=== PATIENT | female | born 1930 | race Hispanic/Latino ===

== ENCOUNTER 2016-11-10 10:33 | Emergency (ER) | payer MEDICARE ==
[2016-11-10] MEDS ORDERED: LOPRESSOR PO ONE (11:03)
[2016-11-10] MEDS ORDERED: COZAAR PO ONE (11:03)
[2016-11-10] MEDS ORDERED: TORADOL IV ONE (11:09)
[2016-11-10 11:32] LABS: Basophils % (Auto) 0.4 % (0.0-1.8); Eosinophils % (Auto) 0.8 % (0.0-4.3); Hematocrit 39.6 % (30.3-42.9); Hemoglobin 13.3 gm/dl (10.1-14.3); Mean Corpuscular HGB Conc 34 % (30-34); Mean Corpuscular Hemoglobin 30 pg (28-32); Mean Corpuscular Volume 88 fl (79-97); Red Blood Count 4.51 M/mm3 (3.65-5.03); Red Cell Distribution Width 14.1 % (13.2-15.2); White Blood Count 8.1 K/mm3 (4.5-11.0)
--- NOTE | 2016-11-10 11:35 | Emergency Department Report ---
ED Abdominal Pain HPI - General Chief Complaint: Abdominal Pain Stated Complaint: GENERAL MALAISE Time Seen by Provider: 11/10/16 10:52 Source: patient, EMS Mode of arrival: Stretcher Limitations: No Limitations - History of Present Illness Initial Comments: 86-year-old female with a past medical history of hypertension, A. fib, previous appendectomy, inguinal hernia repair, and cholecystectomy presents to the hospital complains of abdominal pain.. Patient has had intermittent crampy abdominal pain on and off for 1-2 years. Pain is 7/10 intensity, worse with palpation. No alleviating factors. She suffers from chronic constipation. Last bowel movement 2 days ago it was "a little amount". She denies fever, nausea, vomiting, dysuria, decreased by mouth intake. Mild dizziness reported today. Patient has a mild cough productive yellow sputum and chronic shortness of breath is unchanged. Patient has not yet had her a.m. medications. Pt is no longer on coumadin. PMD: Dr. Nicholas Severity scale (0 -10): 8 - Related Data Home Medications Medication Instructions Recorded Confirmed Last Taken Aspirin [Aspirin BABY CHEW TAB] 1 tab PO DAILY 04/20/14 01/14/16 09/26/15 Dicyclomine [Bentyl] 20 mg PO TID 04/20/14 01/14/16 09/26/15 LORazepam [Ativan] 1 tab PO TID 04/20/14 01/14/16 09/26/15 Metoprolol [Lopressor TAB] 25 mg PO BID 04/20/14 01/14/16 09/26/15 Warfarin Sodium [Coumadin] 5 mg PO DAILY 04/20/14 01/14/16 Unknown AtorvaSTATin [Lipitor] 10 mg PO QHS 09/27/15 09/27/15 09/26/15 Losartan [Cozaar] 100 mg PO QDAY 09/27/15 01/14/16 09/26/15 Polyethylene Glycol 3350 [Miralax 17 gm PO QDAY 01/14/16 01/14/16 Unknown 3350] Previous Rx's Medication Instructions Recorded Last Taken Type Nitrofurantoin Adams/M-Cryst 100 mg PO Q12HR #14 capsule 11/10/16 Unknown Rx [Macrobid CAP] Ondansetron [Zofran Odt] 4 mg PO Q8HR PRN #20 tab.rapdis 11/10/16 Unknown Rx traMADol [Ultram 50 MG tab] 50 mg PO Q6HR PRN #20 tablet 11/10/16 Unknown Rx Allergies Allergy/AdvReac Type Severity Reaction Status Date / Time latex Allergy Itching Verified 11/10/16 10:50 morphine Allergy Nausea Verified 11/10/16 10:50 ED Review of Systems ROS: Stated complaint: GENERAL MALAISE Other details as noted in HPI Comment: All other systems reviewed and negative Other: Constitutional: No fevers chills Eyes: No eye pain visual changes ENT: No ear pain or throat pain Neck: Denies pain Respiratory: Denies cough wheezing shortness of breath Cardiovascular: Denies chest pain, palpitations, syncope GI: As per HPI : Denies dysuria, urinary frequency, or urgency Musculoskeletal: Denies back pain, joint swelling Skin: Denies rash, lesions, erythema Neurologic: Denies headache, numbness, weakness Psychiatric: Denies suicidal ideation, hallucinations ED Past Medical Hx - Past Medical History Previous Medical History?: Yes Hx Hypertension: Yes Hx Congestive Heart Failure: No Hx Diabetes: No Hx Asthma: No Hx COPD: No Additional medical history: AFIB, - Surgical History Past Surgical History?: Yes Hx Coronary Stent: Yes Hx Cholecystectomy: Yes Hx Appendectomy: Yes Hx Breast Surgery: Yes (left side mastectomy) Additional Surgical History: hernia repair, tonsillectomy UTI - Social History Smoking Status: Never Smoker Substance Use Type: None - Medications Home Medications: Home Medications Medication Instructions Recorded Confirmed Last Taken Type Aspirin [Aspirin BABY CHEW TAB] 1 tab PO DAILY 04/20/14 01/14/16 09/26/15 History Dicyclomine [Bentyl] 20 mg PO TID 04/20/14 01/14/16 09/26/15 History LORazepam [Ativan] 1 tab PO TID 04/20/14 01/14/16 09/26/15 History Metoprolol [Lopressor TAB] 25 mg PO BID 04/20/14 01/14/16 09/26/15 History Warfarin Sodium [Coumadin] 5 mg PO DAILY 04/20/14 01/14/16 Unknown History AtorvaSTATin [Lipitor] 10 mg PO QHS 09/27/15 09/27/15 09/26/15 History Losartan [Cozaar] 100 mg PO QDAY 09/27/15 01/14/1609/25/16 History Polyethylene Glycol 3350 [Miralax 17 gm PO QDAY 01/14/16 01/14/16 Unknown History 3350] Nitrofurantoin Adams/M-Cryst 100 mg PO Q12HR #14 capsule 11/10/16 Unknown Rx [Macrobid CAP] Ondansetron [Zofran Odt] 4 mg PO Q8HR PRN #20 tab.rapdis 11/10/16 Unknown Rx traMADol [Ultram 50 MG tab] 50 mg PO Q6HR PRN #20 tablet 11/10/16 Unknown Rx ED Physical Exam - General Limitations: No Limitations - Other Other exam information: General: No limitations, patient is alert in no acute distress Head exam: Atraumatic, normocephalic Eyes exam: Normal appearance, pupils equal reactive to light, extraocular movements intact ENT: Moist mucous membrane, normal oropharynx Neck exam: Normal inspection, full range of motion, no meningismus nontender Respiratory exam: Clear to auscultation bilateral, no wheezes, rales, crackles Cardiovascular: Normal rate and rhythm, normal heart sounds Abdomen: Soft, nondistended, right lower quadrant tenderness, no motor bowel sounds, no rebound or guarding Extremity: Full range of motion normal inspection no deformity Back: Normal Inspection, full range of motion, no tenderness Neurologic: Alert, oriented x3, cranial nerves intact, no motor or sensory deficit Psychiatric: normal affect, normal mood Skin: Warm, dry, intact ED Course Vital Signs 11/10/16 11/10/16 11/10/16 10:49 10:51 10:56 Temperature Pulse Rate 75 80 Respiratory 18 21 Rate Blood Pressure Blood Pressure 183/93 [Right] O2 Sat by Pulse 95 96 97 Oximetry 11/10/16 11/10/16 11/10/16 11:00 11:10 11:20 Temperature Pulse Rate 82 90 Respiratory 25 H 32 H Rate Blood Pressure 191/83 Blood Pressure [Right] O2 Sat by Pulse 96 96 Oximetry 11/10/16 11/10/16 11/10/16 11:30 11:39 11:40 Temperature Pulse Rate 90 Respiratory Rate Blood Pressure 191/83 191/83 191/83 Blood Pressure [Right] O2 Sat by Pulse 97 98 Oximetry 11/10/16 11/10/16 11/10/16 11:41 11:50 12:00 Temperature Pulse Rate 90 Respiratory Rate Blood Pressure 191/83 191/83 191/83 Blood Pressure [Right] O2 Sat by Pulse 97 98 Oximetry 11/10/16 11/10/16 11/10/16 15:24 15:30 15:40 Temperature Pulse Rate Respiratory Rate Blood Pressure 199/86 204/90 204/90 Blood Pressure [Right] O2 Sat by Pulse 96 94 Oximetry 11/10/16 11/10/16 11/10/16 15:50 16:02 16:28 Temperature 97.5 F L Pulse Rate 79 90 Respiratory 17 Rate Blood Pressure 193/97 203/90 Blood Pressure 182/86 [Right] O2 Sat by Pulse 96 97 Oximetry - Reevaluation(s) Reevaluation #1: 11/10/16 16:05 Diabetes states patient receives a dose of metoprolol and losartan for blood pressure. Toradol for pain. She required additional pain medication after trip and fall while in the ED. Pain improved after tramadol and nausea control with Zofran. Prolonged ED stay while awaiting urine production. Patient was able to produce urine after receiving IV fluids - Consultations Consultation #1: 11/10/16 16:38 Case was discussed with patient's primary care doctor Dr. Nicholas. He confirms that patient has chronic pain. He suspects that L1 compression fracture is also chronic but will reevaluate. ED Medical Decision Making - Lab Data Result diagrams: 11/10/16 10:58 11/10/16 10:58 Lab Results 11/10/16 11/10/16 11/10/16 Range/Units 10:58 10:58 15:14 WBC 8.1 (4.5-11.0) K/mm3 RBC 4.51 (3.65-5.03) M/mm3 Hgb 13.3 (10.1-14.3) gm/dl Hct 39.6 (30.3-42.9) % MCV 88 (79-97) fl MCH 30 (28-32) pg MCHC 34 (30-34) % RDW 14.1 (13.2-15.2) % Plt Count 358 (140-440) K/mm3 Lymph % (Auto) 23.1 (13.4-35.0) % Adams % (Auto) 8.2 H (0.0-7.3) % Eos % (Auto) 0.8 (0.0-4.3) % Baso % (Auto) 0.4 (0.0-1.8) % Lymph # 1.9 (1.2-5.4) K/mm3 Adams # 0.7 (0.0-0.8) K/mm3 Eos # 0.1 (0.0-0.4) K/mm3 Baso # 0.0 (0.0-0.1) K/mm3 Seg Neutrophils % 67.5 (40.0-70.0) % Seg Neutrophils # 5.4 (1.8-7.7) K/mm3 Sodium 138 (137-145) mmol/L Potassium 3.8 (3.6-5.0) mmol/L Chloride 98.9 (98-107) mmol/L Carbon Dioxide 24 (22-30) mmol/L Anion Gap 19 mmol/L BUN 27 H (7-17) mg/dL Creatinine 0.9 (0.7-1.2) mg/dL Estimated GFR 59 ml/min BUN/Creatinine Ratio 30.00 % Glucose 110 H (65-100) mg/dL Calcium 8.8 (8.4-10.2) mg/dL Total Bilirubin 0.60 (0.1-1.2) mg/dL AST 21 (5-40) units/L ALT 11 (7-56) units/L Alkaline Phosphatase 70 (35-129) units/L Troponin T < 0.010 (0.00-0.029) ng/mL Total Protein 7.3 (6.3-8.2) g/dL Albumin 3.8 L (3.9-5) g/dL Albumin/Globulin Ratio 1.1 % Lipase 55 (13-60) units/L Urine Color Yellow (Yellow) Urine Turbidity Cloudy (Clear) Urine pH 8.0 H (5.0-7.0) Urine Protein 100 mg/dl (Negative) mg/dL Urine Glucose (UA) Neg (Negative) mg/dL Urine Ketones Neg (Negative) mg/dL Urine Blood Mod (Negative) Urine Nitrite Neg (Negative) Urine Bilirubin Neg (Negative) Urine Urobilinogen < 2.0 (<2.0) mg/dL Ur Leukocyte Esterase Lg (Negative) Urine WBC (Auto) 18.0 H (0.0-6.0) /HPF Urine RBC (Auto) 40.0 (0.0-6.0) /HPF U Epithel Cells (Auto) 3.0 (0-13.0) /HPF Urine Mucus Few /HPF - EKG Data -: EKG Interpreted by Me (sinus rhythm rate [address]-T wave inversion) - Radiology Data Radiology results: report reviewed CT abdomen and pelvis IV contrast: Interval development of approximately 50% L1 compression fracture compared to 10/13/2014. Patient has other advanced multilevel spinal generative changes. Old healed left inferior pubic ramus fracture new since previous CT on record. Diffuse urinary bladder wall thickening noted again compared to previous. Chronic cystitis / hypertrophy may be correlated clinically an appropriate setting. Incidental findings including mild cardiomegaly, CHRONIC vascular calcifications , left renal cyst, cholecystitis, hysterectomy, left hip Jose, and other see report Chest x-ray: No acute process Pelvis x-ray: Osteopenia, left inferior pubic ramus deformity consistent with fracture age indeterminate - Medical Decision Making During ED stay patient has several bowel movements. Upon walking from the commode she tripped over her gown and struck the right flank the bed railing. Patient complains of pain to the right flank and superior right pelvis area. Pelvis x-ray did not reveal any acute abnormality and the old left pubic ramus fracture was once again identified.. Initial bruising resolved prior to discharge. Pain improved after tramadol. Macrobid provided for UTI. Patient provided clonidine 0.1 mg for persistent hypertension in the ED. We'll be instructed to continue her other medications as prescribed - Differential Diagnosis bronchitis, pneumonia, constipation, UTI, diverticulitis, chronic pain Critical Care Time: No Critical care attestation.: If time is entered above; I have spent that time in minutes in the direct care of this critically ill patient, excluding procedure time. ED Disposition Clinical Impression: UTI (urinary tract infection), Contusion, flank, Hypertension, Compression fracture of L1 lumbar vertebra, Dehydration Disposition: -01 TO HOME OR SELFCARE Is pt being admited?: No Does the pt Need Aspirin: No Condition: Poor Instructions: Urinary Tract Infection in Women (ED), Hypertension (ED), Flank Pain (ED), Vertebral Compression Fracture (ED) Additional Instructions: The CAT scan shows a compression fracture of L1 vertebrae approximately 50% that is new compared to September 2014 CAT scan. Please follow-up with the orthopedic doctor provided with orthopedic doctor of your choice. Follow-up with your physician. Take the medications as prescribed. Return if symptoms worsen. Prescriptions: Nitrofurantoin Adams/M-Cryst [Macrobid CAP] 100 mg PO Q12HR #14 capsule Ondansetron [Zofran Odt] 4 mg PO Q8HR PRN #20 tab.rapdis PRN Reason: Nausea And Vomiting traMADol [Ultram 50 MG tab] 50 mg PO Q6HR PRN #20 tablet PRN Reason: Pain Referrals: PRIMARY CARE, [Primary Care Provider] - 3-5 Days GUILLERMO FRAIRE MD [Staff Physician] - 3-5 Days (orthopedic doctor ) Time of Disposition: 16:39
[2016-11-10 11:45] LABS: Alanine Aminotransferase 11 units/L (7-56); Albumin 3.8 g/dL (3.9-5); Albumin/Globulin Ratio 1.1 %; Alkaline Phosphatase 70 units/L (35-129); Anion Gap 19 mmol/L; Blood Urea Nitrogen 27 mg/dL (7-17); Calcium 8.8 mg/dL (8.4-10.2); Carbon Dioxide 24 mmol/L (22-30); Chloride 98.9 mmol/L (98-107); Glucose 110 mg/dL (65-100); Lipase 55 units/L (13-60); Potassium 3.8 mmol/L (3.6-5.0); Sodium 138 mmol/L (137-145); Total Protein 7.3 g/dL (6.3-8.2)
[2016-11-10 11:46] LABS: Platelet Count 358 K/mm3 (140-440)
[2016-11-10] MEDS ORDERED: NACL ONE (12:24)
--- NOTE | 2016-11-10 12:30 | XRay Report ---
AP CHEST: HISTORY: Cough AP view of the chest demonstrates a normal mediastinal and cardiac contour with clear lungs and normal bony and soft tissue structures. IMPRESSION: No acute cardiopulmonary process.
[2016-11-10] MEDS ORDERED: NACL 0.9% 500 ML 500 ML IV ONE (12:35)
--- NOTE | 2016-11-10 13:17 | Cat Scan Report ---
CT ABDOMEN AND PELVIS WITH CONTRAST INDICATION: Right lower quadrant pain, constipation. History of appendectomy, cholecystectomy. COMPARISON: 10/13/2014. FINDINGS: Abdomen and pelvis CT performed following intravenous administration of 100 cc of Omnipaque 300. LUNG BASES: Right hemidiaphragm slightly elevated. Mild bibasilar scarring. Stable mild cardiomegaly. Few atherosclerotic calcifications. Stable 5 mm right distal paraesophageal calcification, axial image 49 near the GE junction. Mild nonspecific distal esophageal wall prominence/thickening, not excluded for gastroesophageal reflux and/or hiatal hernia, amongst others. ABDOMEN: Stable 4.3 x 3 cm left upper renal cyst. Liver, spleen, pancreas, adrenals, IVC and remainder kidneys within normal limits. Gallbladder again surgically absent. No ascites or size significant adenopathy. Atherosclerotic aortoiliac changes. Nonopacified GI tract evaluation limited, though grossly nonobstructive. Mild colonic stool. PELVIS: Diffuse urinary bladder wall thickening and mild mucosal enhancement again noted with now slightly poorer distention. Few pelvic phleboliths. Uterus again surgically absent. Usual rectosigmoid stool. No free fluid or significant adenopathy. Advanced multilevel lumbar and included lower thoracic spine degenerative changes with spurring and severe disc degeneration with vacuum phenomenon at multiple levels again noted. More notably, approximately 50% compression fracture involving superior half of L1 vertebral body has developed with slight retropulsion posterosuperiorly as on sagittal image 99. Osteopenia/osteoporosis. Lumbar facet arthropathy at few levels as well. At least 3 left femoral nails again create streak artifact. Interval development of old healed left inferior pubic ramus fracture, axial image 302, series 2. CONCLUSION: 1. Interval development of approximately 50% L1 compression fracture since September 2014 in this patient with various other advanced multilevel spinal degenerative changes, as detailed above. An old healed left inferior pubic ramus fracture is also new in the interval. 2. Diffuse urinary bladder wall thickening again noted. Chronic cystitis/hypertrophy may be correlated for clinically in an appropriate setting. 3. Various other incidental findings, including mild cardiomegaly, atherosclerotic vascular calcifications, left renal cyst, cholecystectomy, hysterectomy and left hip hardware, amongst others, as described. Thank you for the opportunity to participate in this patient's care.
[2016-11-10] MEDS ORDERED: NACL 0.9% 1000 ML 1,000 ML IV ONE (14:05)
[2016-11-10] MEDS ORDERED: ULTRAM PO ONE (14:09)
[2016-11-10] MEDS ORDERED: ZOFRAN IV ONE (14:10)
--- NOTE | 2016-11-10 14:59 | XRay Report ---
AP PELVIS History: Left pelvic pain. Findings: Osteopenia is noted. There is been previous internal fixation of the left femoral neck with 3 metallic screws. There is residual IV contrast agent in the renal collecting systems and bladder. Subtle deformity of the left inferior pubic ramus is identified consistent with a healing fracture. No additional fractures appreciated. There are degenerative changes in the lower lumbar spine and SI joints. Impression: Osteopenia. Left inferior pubic ramus deformity consistent with fracture, age indeterminate.
[2016-11-10 15:39] LABS: Bilirubin,Urine NEG (Negative); Blood,Urine MOD (Negative); Ketones,Urine NEG (Negative); Leukocyte Esterase,Urine LG (Negative); Mucus,Urine FEW /HPF; Nitrite,Urine NEG (Negative); Urobilinogen,Urine < 2.0 mg/dL (<2.0)
[2016-11-10] MEDS ORDERED: MACROBID PO ONE (15:47)
--- NOTE | 2016-11-10 16:02 | Admit Criteria Form ---
Admission Criteria Documentation: ABDOMINAL PAIN Clinical Indications for Admission to Inpatient Care (Place 'X' for any and all applicable criteria): Admission is indicated for ANY ONE of the following(1)(2)(3)(4)(5): [X ]I. Inpatient admission required rather than observation care (Also use Abdominal Pain: Observation Care, as appropriate) because of ANY ONE of the following: [ ]a) Severe pain requiring acute inpatient management [X ]b) Identification of etiology/finding that requires inpatient care (eg, aortic dissection, free air) [ ]c) Absent bowel sounds with complete ileus(6) [ ]d) Suspected toxic megacolon [ ]e) Severe electrolyte abnormalities requiring inpatient care [ ]f) High fever or infection requiring inpatient admission as indicated by ANY ONE of following(7)(8): [ ] i) Appropriate outpatient or observational care antimicrobial treatment unavailable, not effective, or not feasible [ ] ii) Documented bacteremia [ ] iii) Temperature > 104.9 degrees F (oral) [ ] iv) T >103.1 F (oral) or < 96.8 F(rectal) that does not respond to all emergency treatment measures [ ]g) Signs of intestinal obstruction [B] [ ]h) Hemodynamic instability [ ]i) IV fluid to replace significant ongoing losses (greater than 3 L/m2 per day) (12)(13) [ ]j) Percutaneous or open drainage (eg, abscess, biliary tract ) procedures [ ]k) Parenteral nutrition regimen that must be implemented on inpatient basis [ ]l) Other condition,treatment or monitoring requiring inpatient admission. [ ]II. Peritoneal signs present [ ]III. Surgery needed that cannot be performed on an ambulatory basis. [ ]IV. Evaluation requires patient to not eat or drink for extended period ( eg, more than 24 hours). [ ]V. Contraindications and/or Inappropriate clinical situations for Observational Care in patients with abdominal pain, when ANY ONE of the following is required: [ ]a) Thorough evaluation is required to prevent catastrophic events due to delays in diagnosing (e.g.Mesenteric ischemia) 1,3 [ ]b) Patient with severe pathology or with chronic symptoms unlikely to improve in the ED stay (3) [ ]. General contraindications and/or Inappropriate clinical situations for Observational Care in patients with abdominal pain, when ANY ONE of the following is required: [ ]a) Prediction of prolongation of LOS based on ANY ONE of the following may be considered as a contraindication for observational care 2, 3, 4, 5, 6, 7, 8, 9, 10, 11 [ ]i) Age > 65 yrs. [ ]ii) Patient arriving by ambulance [ ]iii) Patient with high acuity [ ]iv) Patient requiring vital sign monitoring [ ]v) Patient on IV medication [ ]b) Systolic blood pressures 180mmHg 3,12 [ ]c) Patient with altered mental status including delirium and other alteration of consciousness, (3) [ ]d) Patient whose discharge disposition will be to a [place] [facility] home or rehabilitation home should not be managed in Emergency Department Observation Unit. CMS rule requires 3 days hospital stay before such placement.3,13 [ ]e) Patient with failure to thrive due to broad array of etiologies 3,16,17 [ ]f) Inability to ambulate 3,14 Extended stay beyond goal length of stay may be needed for(2)(3): [ ]a) Persistent abdominal pain with suspected intra-abdominal process [ ]b) Diagnosed condition requiring continued stay (e.g., pancreatitis, complicated diverticulitis) [ ]c) Surgery (e.g., colectomy) The original [facility] content created by [employer] has been revised. The portions of the content which have been revised are identified through the use of italic text or in bold, and [facility] [employer] has neither reviewed nor approved the modified material.All other unmodified content is copyright [facility]. Please see references footnoted in the original [facility] edition 2016 Admission Criteria Met: Yes
[2016-11-10] MEDS ORDERED: CATAPRES PO ONE (16:18)
[2016-11-10 16:28] VITALS: BP 203/90
== END 2016-11-10 17:55 | disposition home or self-care (01) ==
LOC: ED 10:33
DX: S30.1XXA Contusion of abdominal wall, initial encounter (principal); M84.48XA Pathological fracture, other site, initial encounter for fracture; N39.0 Urinary tract infection, site not specified; E86.0 Dehydration; I10 Essential (primary) hypertension; X58.XXXA Exposure to other specified factors, initial encounter; Y93.9 Activity, unspecified; Y92.9 Unspecified place or not applicable; Y99.9 Unspecified external cause status
CPT/HCPCS: 36415; 71010; 72170; 74177; 80053; 81001; 83690; 84484; 85025; 93005; 93010; 96361; 96374; 96375; 99285; J1885; J2405; J7030; J7040; Q9967